=== PATIENT | male | born 1985 | race Caucasian/White ===

== ENCOUNTER 2016-05-16 00:26 | Emergency (ER) | payer OTHER ==
[~2016-05-16] VITALS: Ht 170.2 cm; Wt 94.7 kg
[~2016-05-16 00:26] MED LIST: MELA1TAB3 PO; MULT-506 PO
[2016-05-16 00:30] VITALS: TEMP 36.6; Ht 170.2 cm; Wt 94.7 kg
[2016-05-16 00:43] VITALS: O2SAT 98
--- NOTE | 2016-05-16 00:52 | EMERGENCY ROOM VISIT NOTE ---
History Report prepared by Stephiblori: Larissa Lloyd Under the Supervision of: Dr. Ronaldo Alberto M.D. First contact with patient: 00:36 Chief Complaint: CARDIAC ASSESSMENT Stated Complaint: PAIN IN CHEST History of Present Illness The patient is a 31 year old male who presents to the Emergency Room via private vehicle with complaints of a persistent racing heart rate that began this evening. The patient also complains of left sided chest pain and generalized chest tightness. The patient has been having similar episodes for the past couple months and was here for similar symptoms about a month ago. The patient has been wearing a Holter monitor since the middle of April. Since his most recent visit, he has had multiple episodes of these symptoms but none that have been this intense. The patient is unsure what his pulse was when his symptoms began but he did feel like it was much faster than usual. Currently, he is still symptomatic but is feeling improved from when they initially started. The patient is scheduled to see cardiology on May 26 due to a 4 hour episode caught on his Holter monitor. He does not have a history of cardiac problems or heart surgeries. Denies shortness of breath or other complaints. There is a family history of aneurysm but otherwise no family history of heart disease or clotting disorders. Source of History: patient Onset: this evening Position: other (cardiac) Quality: other (racing heart rate) Timing: other (persistent) Associated Symptoms: + chest pain, No SOB Review of Systems See HPI for pertinent positives & negatives. A total of 10 systems reviewed and were otherwise negative. Past Medical & Surgical Medical Problems: (1) Hypertension (2) Kidney disease Family History FHx: cancer Social History Smoking Status: Current Every Day Smoker Alcohol Use: occasionally Drug Use: none Marital Status: single Occupation Status: employed Current/Historical Medications Scheduled Melatonin-Pyridoxine (Melatonin), 3 MG PO HS Multivitamin (Multivitamin), 1 TAB PO DAILY Allergies Coded Allergies: No Known Allergies (Unverified , 05/16/16) Physical Exam Vital Signs Date Time Temp Pulse Resp B/P Pulse Ox O2 Delivery O2 Flow Rate FiO2 05/16/16 03:02 81 16 159/89 97 05/16/16 00:51 93 05/16/16 00:43 98 Room Air 05/16/16 00:30 36.6 85 18 154/97 100 Room Air Physical Exam GENERAL: Patient is anxious appearing and in no acute distress. HEENT: No acute trauma, normocephalic atraumatic, mucous membranes moist, no nasal congestion, no scleral icterus. NECK: No stridor, no adenopathy, no meningismus, trachea is midline. LUNGS: No dyspnea. Clear to auscultation and equal bilaterally. No wheeze, no rhonchi. HEART: Regular rate and rhythm. No murmurs, rubs, gallops appreciated. ABDOMEN: Soft, nontender, bowel sounds positive, no masses appreciated, no peritonitis. BACK: No midline tenderness, no CVA tenderness EXTREMITIES: Normal motion all extremities, no cyanosis, no edema. NEUROLOGIC: Alert and oriented, no acute motor or sensory deficits, no focal weakness, cranial nerves grossly intact. SKIN: No rash, no jaundice, no diaphoresis. Medical Decision & Procedures ER Provider Diagnostic Interpretation: X ray results are stated below per my interpretation: Chest 2 view: No infiltrate. No significant effusion. Normal cardiac border. Small right mid fissure. ECG Indication: chest pain Rate (beats per minute): 84 Rhythm: normal sinus Findings: Q waves (throughout), no acute ischemic change, no ectopy Comparison ECG Date: 04/16/2016 Change: no significant change ED Course 0039: The patient was evaluated in room A11. A complete history and physical exam was performed. 0053: The patient agreed to a chest x-ray. 0212: I reassessed the patient. He is currently asymptomatic. 0250: Reevaluated the patient. Discussed results and discharge instructions: He verbalized understanding and agreement. The patient is ready for discharge. Medical Decision Differential: NSR, SVT, PACs, PVCs, Cardiac Dysrhythmia, Endocrine Dysfunction, Electrolyte/Metabolic Abnormality, Pulmonary Embolism, Infectious, GI, amonst other pathologies entertained. 31 yr old male with several weeks of intermittent palpitations. Previously seen with normal labs including normal trop and negative dimer. CXR unremarkable today other than trace fluid right mid lung fissure. EKG unchanged. He has holter monitor currently on and denies currently symptoms as they have now resolved. Vitals normal. He has no pe risk factors nor symptoms of PE currently and given previous episodes with normal dimer I do not feel labs /cta indicated at this time. Stable, no distress and comfortable. Already has Cards appointment in a week thus will follow up with them. Discussed causes of intermittent palpitations and symptoms requiring immediate return/911. Impression Primary Impression: Intermittent palpitations Scribe Attestation The scribe's documentation has been prepared under my direction and personally reviewed by me in its entirety. I confirm that the note above accurately reflects all work, treatment, procedures, and medical decision making performed by me. Departure Information Dispostion Home / Self-Care Referrals No Doctor, Assigned (PCP) Patient Instructions ED Palpitations, My [facility]
[2016-05-16 03:02] VITALS: BP 159/89; PULSE 81; O2SAT 97
--- NOTE | 2016-05-16 07:08 | DIAGNOSTIC IMAGING REPORT ---
CHEST 2 VIEWS ROUTINE CLINICAL HISTORY: Atypical chest pain COMPARISON STUDY: 04/16/2016 FINDINGS: The cardiac and mediastinal contours are normal. There is no evidence of focal pulmonary consolidation. There is no evidence of failure. No pleural effusions are visualized.[ IMPRESSION: No active disease in the chest. Electronically signed by: Omar Abbott M.D. 05/16/2016 7:07 AM Dictated Date/Time: 05/16/2016 7:06 AM
[2016-05-17] MEDS ORDERED: LORA-741 PO (17:32)
== END 2016-05-16 03:03 | disposition home or self-care (01) ==
LOC: C.EDB 00:27 → C.EDA 03:03
DX: R00.2 Palpitations (principal); R07.89 Other chest pain; F17.210 Nicotine dependence, cigarettes, uncomplicated; I10 Essential (primary) hypertension

== ENCOUNTER 2016-05-17 14:01 | Emergency (ER) | payer OTHER ==
[~2016-05-17] VITALS: Ht 170.2 cm; Wt 92.0 kg
[2016-05-17 14:12] VITALS: TEMP 36.8; Ht 170.2 cm; Wt 92.0 kg
[2016-05-17 15:06] VITALS: O2SAT 97
[2016-05-17 15:23] LABS: BASO % 0.3 %; BASO ABS # 0.02 K/uL (0-0.2); COMPLETE YES; EOS % 2.5 %; HEMATOCRIT 46.7 % (42-52); IG% 0.2 %; LYMPH % 26.5 %; LYMPH ABS # 1.69 K/uL (1.2-3.4); MEAN CELL VOLUME 84.1 fL (80-100); MEAN CORPUSCULAR HEMOGLOBIN 29.2 pg (25-34); MEAN CORPUSCULAR HGB CONC 34.7 g/dl (32-36); MEAN PLATELET VOLUME 9.5 fL (7.4-10.4); MONO % 7.2 %; NEUT % 63.3 %; PLATELET COUNT 235 K/uL (130-400); RED BLOOD COUNT 5.55 M/uL (4.7-6.1); WHITE BLOOD COUNT 6.38 K/uL (4.8-10.8)
[2016-05-17 15:39] LABS: ALT/SGPT 44 U/L (12-78); BLOOD UREA NITROGEN 11 mg/dl (7-18); BUN/CREATININE RATIO 9.7 (10-20); CARBON DIOXIDE 29 mmol/L (21-32); CHLORIDE 102 mmol/L (98-107); GLUCOSE 89 mg/dl (70-99); POTASSIUM 4.1 mmol/L (3.5-5.1); SODIUM 140 mmol/L (136-145)
--- NOTE | 2016-05-17 15:42 | DIAGNOSTIC IMAGING REPORT ---
CHEST ONE VIEW PORTABLE CLINICAL HISTORY: CHEST PAIN dyspnea COMPARISON STUDY: 05/16/2016 FINDINGS: The bones soft tissues and hemidiaphragms are normal. The cardiomediastinal silhouette is normal. The lungs are clear. The pulmonary vasculature is normal. IMPRESSION: Negative chest. Electronically signed by: Avni Couch M.D. 05/17/2016 3:41 PM Dictated Date/Time: 05/17/2016 3:41 PM
[2016-05-17 15:44] LABS: ALKALINE PHOSPHATASE 81 U/L (45-117); AST/SGOT 30 U/L (15-37)
[2016-05-17 17:23] LABS: BENZODIAZEPINE, URINE NEG (NEG); COCAINE,URINE NEG (NEG); PHENCYCLIDINE, URINE NEG (NEG)
[2016-05-17] MEDS ORDERED: LORA-741 PO (17:32)
--- NOTE | 2016-05-17 17:35 | EMERGENCY ROOM VISIT NOTE ---
History First contact with patient: 14:57 Chief Complaint: SHORTNESS OF BREATH Stated Complaint: SOB, HEART RACING Nursing Triage Summary: pt here with feeling of hard to breath x one hours pt states feels like chest is caving in. denies any hx. pt states has had this feeling since last month. History of Present Illness The patient is a 31 year old male who presents to the Emergency Room with complaints of shortness of breath and palpitations. The patient reports that he is currently having shortness of breath, feeling like the center of his chest is caving in, and palpitations. He has had multiple episodes like this over the past 2 months. He states that these episodes typically last approximately 2 hours each. He has been seen here multiple times for the same symptoms. He states that he currently has a 24 hour heart monitor and has an appointment in one week with cardiology to review the results. He states that one of his episodes was 4 hours long. He has not been told that he has any cardiac arrhythmias. He has been seeing his primary care provider for symptoms. He does report that he has had a mild increase in anxiety over the past few months. The symptoms do feel similar to when he has had previous episodes of these symptoms. He states that they resolve without treatment. He denies any associated jaw pain, neck pain, arm pain, nausea, vomiting, recent illness or fevers. He denies any abdominal pain. Review of Systems A complete 10-point Review of Systems was discussed with the patient, with pertinent positives and negatives listed in the History of Present Illness. All remaining Review of Systems questions can be considered negative unless otherwise specified. Past Medical/Surgical History Medical Problems: (1) Hypertension (2) Kidney disease Family History FHx: cancer Social History Smoking Status: Current Every Day Smoker Alcohol Use: occasionally Drug Use: none Marital Status: single Occupation Status: employed Current/Historical Medications Scheduled Melatonin-Pyridoxine (Melatonin), 3 MG PO HS Multivitamin (Multivitamin), 1 TAB PO DAILY Scheduled PRN Lorazepam (Ativan), 1-2 TAB PO Q6H PRN for Anxiety Allergies Coded Allergies: No Known Allergies (Unverified , 05/17/16) Physical Exam Vital Signs Date Time Temp Pulse Resp B/P Pulse Ox O2 Delivery O2 Flow Rate FiO2 05/17/16 17:40 66 19 149/91 98 Room Air 05/17/16 16:25 69 17 151/87 96 05/17/16 15:06 97 Room Air 05/17/16 14:57 78 05/17/16 14:12 36.8 75 16 147/90 98 Room Air Physical Exam VITALS: Vitals are noted on the nurse's note and reviewed by myself. Vital signs stable. GENERAL: This is a 31-year-old male, in no acute distress, nondiaphoretic, well- developed well-nourished. SKIN: Capillary reflex less than 2 seconds. HEENT: Normocephalic. PERRLA. EOMI. Nares patent. Mucous membranes moist. Neck is supple without nuchal rigidity. HEART: Regular rate and rhythm without murmurs gallops or rubs. LUNGS: Clear to auscultation bilaterally without wheezes, rales or rhonchi. No retractions or accessory muscle use. ABDOMEN: Positive bowel sounds x 4. Soft, nontender to palpation. NEURO: Patient was alert and oriented to person place and time. Medical Decision & Procedures ER Provider Diagnostic Interpretation: CHEST ONE VIEW PORTABLE CLINICAL HISTORY: CHEST PAIN dyspnea COMPARISON STUDY: 05/16/2016 FINDINGS: The bones soft tissues and hemidiaphragms are normal. The cardiomediastinal silhouette is normal. The lungs are clear. The pulmonary vasculature is normal. IMPRESSION: Negative chest. Laboratory Results 05/17/16 15:10 Red Blood Count 5.55, Mean Corpuscular Volume 84.1, Mean Corpuscular Hemoglobin 29.2, Mean Corpuscular Hemoglobin Concent 34.7, Mean Platelet Volume 9.5, Neutrophils (%) (Auto) 63.3, Lymphocytes (%) (Auto) 26.5, Monocytes (%) (Auto) 7.2, Eosinophils (%) (Auto) 2.5, Basophils (%) (Auto) 0.3, Neutrophils # (Auto) 4.04, Lymphocytes # (Auto) 1.69, Monocytes # (Auto) 0.46, Eosinophils # (Auto) 0.16, Basophils # (Auto) 0.02 05/17/16 15:10 Test 05/17/16 15:10 05/17/16 16:35 White Blood Count 6.38 K/uL (4.8-10.8) Red Blood Count 5.55 M/uL (4.7-6.1) Hemoglobin 16.2 g/dL (14.0-18.0) Hematocrit 46.7 % (42-52) Mean Corpuscular Volume 84.1 fL (80-100) Mean Corpuscular Hemoglobin 29.2 pg (25-34) Mean Corpuscular Hemoglobin Concent 34.7 g/dl (32-36) Platelet Count 235 K/uL (130-400) Mean Platelet Volume 9.5 fL (7.4-10.4) Neutrophils (%) (Auto) 63.3 % Lymphocytes (%) (Auto) 26.5 % Monocytes (%) (Auto) 7.2 % Eosinophils (%) (Auto) 2.5 % Basophils (%) (Auto) 0.3 % Neutrophils # (Auto) 4.04 K/uL (1.4-6.5) Lymphocytes # (Auto) 1.69 K/uL (1.2-3.4) Monocytes # (Auto) 0.46 K/uL (0.11-0.59) Eosinophils # (Auto) 0.16 K/uL (0-0.5) Basophils # (Auto) 0.02 K/uL (0-0.2) RDW Standard Deviation 39.5 fL (36.4-46.3) RDW Coefficient of Variation 13.0 % (11.5-14.5) Immature Granulocyte % (Auto) 0.2 % Immature Granulocyte # (Auto) 0.01 K/uL (0.00-0.02) D-Dimer < 190 ug/L FEU (0-500) Anion Gap 9.0 mmol/L (3-11) Est Creatinine Clear Calc Drug Dose 107.2 ml/min Estimated GFR () 104.6 Estimated GFR (Non- 90.2 BUN/Creatinine Ratio 9.7 (10-20) Calcium Level 9.0 mg/dl (8.5-10.1) Total Bilirubin 0.3 mg/dl (0.2-1) Direct Bilirubin < 0.1 mg/dl (0-0.2) Aspartate Amino Transf (AST/SGOT) 30 U/L (15-37) Alanine Aminotransferase (ALT/SGPT) 44 U/L (12-78) Alkaline Phosphatase 81 U/L (45-117) Troponin I < 0.015 ng/ml (0-0.045) Total Protein 8.1 gm/dl (6.4-8.2) Albumin 4.2 gm/dl (3.4-5.0) Lipase 162 U/L (73-393) Urine Opiates Screen NEG (NEG) Urine Methadone, Qualitative NEG (NEG) Urine Barbiturates NEG (NEG) Urine Phencyclidine (PCP) Level NEG (NEG) Ur Amphetamine/Methamphetamine NEG (NEG) MDMA (Ecstasy) Screen NEG (NEG) Urine Benzodiazepines Screen NEG (NEG) Urine Cocaine Metabolite NEG (NEG) Urine Marijuana (THC) NEG (NEG) ECG Rate (beats per minute): 73 Rhythm: normal sinus (sinus arrhythmia) Findings: no acute ischemic change, no ectopy, other (early repolarization) Change: no significant change (no change from 05/16/16) Medical Decision Differential diagnosis includes acute coronary syndrome, pulmonary embolism, pneumothorax, pericarditis, myocarditis, endocarditis, anxiety, musculoskeletal pain, GERD, costochondritis, among others. The patient was evaluated as above. Labs were drawn and IV access was obtained. The patient was placed on the police records clerk. Imaging studies were performed and read by radiology as above. The patient was reassessed multiple times during their stay in the emergency department and remained in stable condition. The patient is a 31-year-old male who presents today complaining of shortness of breath and palpitations. Review of the patient's records reveal that the patient has been here 3 other times within the past 2 months for similar symptoms. He has had negative workups each time. Labs revealed no leukocytosis , anemia or concerning electrolyte abnormalities. Troponin was not elevated. D -dimer was not elevated, and the patient is considered low risk for pulmonary embolism by the Wells score. Urine tox screen was performed and was negative. EKG was interpreted by myself and showed a normal sinus rhythm with early repolarization, unchanged from previous EKGs performed here. The patient has now coming appointment with cardiology. His vital signs today are normal. He is not hypoxic or tachycardic. I do feel there is likely a component of anxiety to the patient's symptoms. I discussed this with him and did give him a prescription for Ativan to take when he has the episodes of palpitations. He will follow-up with cardiology as scheduled in his primary care provider this week. He will return for worsening symptoms. Based on the patient's presentation, lab results, and imaging studies, I feel the patient is stable for outpatient treatment. The patient's case was reviewed with Dr. Taylor, ED attending physician, who agreed with my assessment and treatment plan. Discharge instructions were reviewed with the patient. The patient verbalized understanding of my assessment and treatment plan and was discharged home in good condition. Impression Primary Impression: Palpitations Additional Impression: Shortness of breath Departure Information Dispostion Home / Self-Care Condition GOOD Prescriptions Lorazepam (ATIVAN) 0.5 Mg Tab 1-2 TAB PO Q6H Y for Anxiety, #8 TAB Prov: Ashly Dukes ., VANESSA 05/17/16 Referrals No Doctor, Assigned (PCP) Patient Instructions My [facility] Additional Instructions You have been treated in the Emergency Department for your Non-Cardiac Chest Pain. Laboratory results and Imaging Studies have ruled out any cardiac or pulmonary cause of your chest pain. Ativan (Lorazepam): Take 1-2 pills as needed for anxiety/palpitations. For pain control, you can use the following [id number] medicines (if >12 yo): - Regular strength (325mg/tab) Tylenol (acetaminophen) 2 tabs every 4-6 hours as needed. Do not exceed 12 tablets in a 24 hour period. Avoid taking more than 4 grams (4000 mg) of Tylenol per day. This includes any other sources of acetaminophen you may take on a regular basis. - Regular strength (200 mg/tab) Advil (ibuprofen) 1-2 tabs every 4-6 hours as needed. Do not exceed a dose of 3200 mg per day. You should schedule a follow-up appointment with your Primary Care Provider in 2 -3 days for further evaluation from today's Emergency Department visit. Follow-up with cardiology as scheduled. Return to the Emergency Department if your current symptoms worsen despite treatment course outlined above, or if you develop any of the following symptoms : worsening chest pain, associated jaw/arm pain, nausea, dizziness, worsening shortness of breath, bloody cough, or fainting. Problem Qualifiers
[2016-05-17 17:40] VITALS: BP 149/91; PULSE 66; O2SAT 98
== END 2016-05-17 17:44 | disposition home or self-care (01) ==
LOC: C.EDB 14:02 → C.EDC 17:44
DX: R00.2 Palpitations (principal); R06.02 Shortness of breath; I10 Essential (primary) hypertension; F17.200 Nicotine dependence, unspecified, uncomplicated

== ENCOUNTER 2016-12-12 22:21 | Emergency (ER) | payer OTHER ==
[~2016-12-12] VITALS: Ht 172.7 cm; Wt 93.0 kg
[2016-12-12 22:26] VITALS: TEMP 36.7; Ht 172.7 cm; Wt 93.0 kg
[2016-12-12] MEDS ORDERED: IBUPROFEN 600 MG TAB PO STA (22:37)
[2016-12-12] MEDS ORDERED: [UNRECOGNIZED DRUG - REMARK] PO (22:55)
[2016-12-13] VITALS: BP 134/76; PULSE 80; O2SAT 99
--- NOTE | 2016-12-13 05:57 | DIAGNOSTIC IMAGING REPORT ---
LEFT WRIST MIN 3 VIEWS ROUTINE HISTORY: 31 years-old Male acute left-sided wrist pain COMPARISON: None available TECHNIQUE: 3 views of the left wrist FINDINGS: There is positive ulnar variance of approximately 4 mm. No acute fracture, dislocation or significant degenerative changes identified. Soft tissues are within normal limits without radiopaque foreign body identified. IMPRESSION: 1. No acute bony abnormality. 2. Incidental note is made of 4 mm positive ulnar variance. The above report was generated using voice recognition software. It may contain grammatical, syntax or spelling errors. Electronically signed by: Tamir Duncan M.D. 12/13/2016 5:56 AM Dictated Date/Time: 12/13/2016 5:54 AM
--- NOTE | 2016-12-13 06:42 | EMERGENCY ROOM VISIT NOTE ---
ED Visit Note First contact with patient: 22:29 CHIEF COMPLAINT: Wrist injury HISTORY OF PRESENT ILLNESS: This 31 yo patient presents to the emergency department complaining of pain in the left wrist after doing a lot of repetitive activity at work. The patient is able to move their wrist. The patient states the pain is throbbing and 3/10. No laceration, no weakness. No numbness or tingling. The patient denies any other injury. The patient is able to move their fingers and elbow without difficulty. The patient has not had a previous fracture to this wrist. The patient has taken nothing for the pain. REVIEW OF SYSTEMS: A 6 system review of systems was performed with positives and pertinent negatives in the HPI. ALLERGIES: none MEDICATIONS: Reviewed PMHMedical Problems: (1) Hypertension Status: Chronic (2) Kidney disease Status: Chronic Prior orthopedic surgery SOCIAL HISTORY: No drug use PHYSICAL EXAM: Vital Signs: Reviewed Nurse's notes, vital signs stable. GENERAL : Pleasant male, in no acute distress, but appears to be in pain, well-developed , well-neurished. NEURO: Alert and oriented to person place and time. Normal sensation to light and sharp touch. MUSCULOSKELETAL: There is no deformity of the left wrist. There is tenderness and edema over distal ulna. There is no snuff box tenderness. Range of motion is intact. There is no tenderness of the elbow, hand or fingers. 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 Radial pulse 2+. SKIN: Normal and intact. The hand is warm and well perfused with capillary refill less than 2 seconds. EMERGENCY DEPARTMENT COURSE: I examined the patient. An X-ray of the left wrist was reviewed by myself and my attending and showed no fracture. A Velcro wrist splint was placed under my direction and the position was satisfactory. Neurovascular status rechecked and intact. Patient was advised follow-up with orthopedics in a few days or here in the ER sooner for severe pain, numbness, tingling, worsening signs or symptoms or as needed. The patient was discharged home in good condition. Differential diagnoses include sprain, strain, fracture, tendinitis, dislocation and other etiologies were considered. DIAGNOSIS: Left wrist pain DISCHARGE INSTRUCTIONS & TREATMENT: As below Problem List Medical Problems: (1) Hypertension Status: Chronic (2) Kidney disease Status: Chronic Current/Historical Medications Scheduled [Unknown Anxiety Med], 1 DOSE PO DAILY Allergies Coded Allergies: No Known Allergies (Unverified , 05/17/16) Vital Signs Date Time Temp Pulse Resp B/P (MAP) Pulse Ox O2 Delivery O2 Flow Rate FiO2 12/13/16 00:00 80 18 134/76 99 12/12/16 22:26 36.7 76 18 156/98 99 Room Air Medications Administered Medications (Trade) Dose Ordered Sig/Hema Route Start Time Stop Time Status Last Admin Dose Admin Ibuprofen (Motrin Tab) 600 mg NOW STAT PO 12/12/16 22:37 12/12/16 22:39 DC 12/12/16 23:28 600 MG Departure Information Impression Primary Impression: Left wrist pain Dispostion Home / Self-Care Condition GOOD Referrals Royer Gregory M.D. Forms WORK / SCHOOL INSTRUCTIONS, HOME CARE DOCUMENTATION FORM, IMPORTANT VISIT INFORMATION Patient Instructions Replaced By [facility] Additional Instructions Ibuprofen(Motrin, Advil) may be used for fever or pain. Use 600mg every six hours as needed. Take with food. Avoid using more than 2400mg in a 24 hour period. Do not use 2400mg per day for more than three consecutive days without physician direction. Prolonged inappropriate use can lead to stomach upset or ulcers. This medication can be taken if you need to drive, work, or perform activities which may be dangerous when taking narcotic pain medication. (AND/OR) Acetaminophen(Tylenol) may be used for fever or pain. Use 1000mg every six hours as needed. Avoid using more than 3000mg in a 24 hour period. This medication can be taken if you need to drive, work, or perform activities which may be dangerous when taking narcotic pain medication. Ice compresses for 20 minutes at a time four times daily for 2-3 days. Rest and elevate your injury. Wear splint throughout the day. Do not have it so tight that you cannot feel your fingers. Continue current medications. Return to the ER immediately for any numbness, tingling, severe pain, extreme swelling in the extremity or as needed. Call Orthopedics in 5-7 days if symptoms persist to arrange follow up for your injury.
== END 2016-12-13 | disposition home or self-care (01) ==
LOC: C.EDB 22:22 → C.EDD 12-13
DX: M25.532 Pain in left wrist (principal); I12.9 Hypertensive chronic kidney disease with stage 1 through stage 4 chronic kidney disease, or unspecified chronic kidney disease; N18.9 Chronic kidney disease, unspecified